=== PATIENT | male | born 1970 | race Caucasian/White ===

== ENCOUNTER → 2018-01-20 | Outpatient (CLI) | payer BC ==
--- NOTE | 2018-01-20 08:32 | RADIOLOGY REPORT (SQ) ---
EXAM DESCRIPTION: MRI RT LOWER JOINT WITHOUT COMPLETED DATE/TIME: 01/20/2018 7:52 am REASON FOR STUDY: PAIN IN RIGHT HIP (M25.551) M25.511 PAIN IN RIGHT SHOULDER M25.551 PAIN IN RIGHT HIP COMPARISON: None. TECHNIQUE: Righthip images acquired and stored on PACS. Multiplanar images to include fat sensitive sequences as T1, fluid sensitive sequences as T2/STIR and gradient echo sequences. Large FOV fat and fluid sensitive sequences include pelvis and opposite hip. LIMITATIONS: None. FINDINGS: BONE CORTEX AND MARROW: No generalized marrow replacement. No occult fracture. No worriso me bone lesions. Right HIP: FEMORAL HEAD: No occult fracture. No femoral head osteophytes or subchondral cysts. Normal sphericity of femoral head/neck junction. No evidence femoroacetabular impingement. No significant effusion. ACETABULUM: No acetabular dysplasia. No subchondral cysts. LABRUM: In the mid 3rd of the labrum is diffusely abnormal, high in signal, irregular in shape with a djacent soft tissue edema. Moderate edema in the lateral acetabular rim. This is best shown on erma nal series 4, images 10-14. TROCHANTER: No trochanteric bursal effusion. No edema/fluid at the insertions of the gluteus medius and gluteus minimus. Left HIP: No joint effusion. Joint space and articular cartilage maintained. There is degenerative change along the mid 3rd of the left acetabular labrum, with labral tear, and 12 mm paralabral cyst. Mild edema in the acetabular rim. PELVIS, LOWER LUMBAR SPINE, SACROILIAC JOINTS: PELVIS : No insufficiency/stress fractures. No significant degenerative changes. Sacroiliac joints normal. L SPINE: There is bilateral L4-5 and L5-S1 facet arthropathy MUSCLES AND SOFT TISSUES: Adductors and piriformis normal. Abductors and greater trochanteric bursa n ormal without edema or fluid. Iliopsoas bursa without fluid. Hamstring attachments without edema or t ear. PELVIC SOFT TISSUES: No masses or adenopathy. SCIATIC NERVE: Identified, without masses or abnormal signal. OTHER: No other significant finding. 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 TECHNICAL DOCUMENTATION: JOB ID: [id number] [employer] All Rights Reserved Reading location - IP/workstation name: [facility] NEEDS [email or web address]
== END ==
LOC: RAD 06:52
PROVIDERS: ATTEND Physician Assistant
DX: M25.551 Pain in right hip (principal); M16.11 Unilateral primary osteoarthritis, right hip

== ENCOUNTER → 2019-08-03 | Outpatient (CLI) | payer OTHER ==
--- NOTE | 2019-08-03 12:10 | XCELERA REPORT ---
[address] [place] [facility] [address] Lower Extremity Venous Evaluation Procedure: Color flow and duplex imaging of the veins of the left lower extremity as well as the right Common Femoral vein. Right Sided Venous Evaluation The right common femoral vein is fully compressible. Spontaneous and phasic flow is present in the right common femoral vein. Left Sided Venous Evaluation Normal vessel filling wall to wall, compression and augmentation as well as Colour flow down to the infrageniculate veins. Interpretation Summary No duplex evidence of DVT or obstruction in the left lower extremity nor in the right Common Femoral vein. Name: KAROLINE WALKER Age: 49 yrs Gender: Male : 1970 Patient Status: Outpatient Patient Location: Study Date: 08/03/2019 10:28 AM Reason For Study: LLE SWELLING Ordering Physician: RODNEY GIBSON Performed By: Mya Alvarez : RODNEY GIBSON > Khalif Garcia
== END ==
LOC: SP 10:05
PROVIDERS: ATTEND Physician Assistant
DX: R22.42 Localized swelling, mass and lump, left lower limb (principal)
CPT/HCPCS: 93971